=== PATIENT | male | born 1990 | race Two or more races ===

== ENCOUNTER 2023-06-19 17:30 | Emergency (ER) | payer MEDICAID ==
[~2023-06-19] VITALS: Ht 172.7 cm; Wt 70.2 kg
[2023-06-19 21:24] VITALS: BP 110/64; PULSE 70; RESP 15; TEMP 97.5; O2SAT 97
[2023-06-19] MEDS ORDERED: AMOX875T4 PO (21:41)
[2023-06-19] MEDS ORDERED: IBUP-1456 PO (21:41)
[2023-06-19] MEDS ORDERED: ZOFR4T PO (21:41)
[2023-06-19] MEDS: KETOROLAC TROMETH 60MG/2ML VIAL IM ONE (21:46)
[2023-06-19] MEDS: ONDANSETRON ODT 4 MG TAB PO ONE (21:46)
[2023-06-19] MEDS: cefTRIAXone SOD 1,000 MG VL IM ONE (21:46)
== END 2023-06-19 21:41 | disposition home or self-care (01) ==
LOC: ER 17:30
DX: G44.209 Tension-type headache, unspecified, not intractable (principal); H66.92 Otitis media, unspecified, left ear
CPT/HCPCS: 70450; 96372; 99285; J0696; J1885; Q0162

== ENCOUNTER 2023-06-23 22:23 | Emergency (ER) | payer MEDICAID ==
[~2023-06-23] VITALS: Ht 172.7 cm; Wt 70.3 kg
[~2023-06-23 22:23] MED LIST: AMOX875T4 PO; IBUP-1456 PO; ZOFR4T PO
[2023-06-23 23:30] LABS: Basophils # (auto) 0 10 ^3/uL (0-0.2); Basophils % (auto) 0.3 % (0.0-2.0); Eosinophils # (auto) 0.1 10 ^3/uL (0-0.8); Eosinophils % (auto) 0.7 % (0.0-7.0); Hematocrit 39.9 % (41.0-53.0); Hemoglobin 13.8 g/dL (13.5-17.5); Lymphocytes # (auto) 1.6 10 ^3/uL (0.4-5.4); Lymphocytes % (auto) 22.3 % (10.0-50.0); Mean Corpuscular Hemoglobin 31.1 pg (28.0-32.0); Mean Corpuscular Hgb Conc. 34.5 g/dL (32.0-36.0); Mean Corpuscular Volume 90.3 fL (80.0-100.0); Monocytes # (auto) 0.6 10 ^3/uL (0-1.3); Monocytes % (auto) 8.3 % (0.0-12.0); Neutrophils # (auto) 4.8 10 ^3/uL (1.6-8.6); Neutrophils % (auto) 68.4 % (37.0-80.0); Red Blood Cells 4.42 10^6/uL (4.5-5.90); Red Cell Distribution Width 12.2 % (11.8-14.3); White Blood Cell 7.1 10^3/uL (4.4-10.8)
[2023-06-23 23:31] VITALS: BP 110/63; PULSE 70; RESP 18; TEMP 98.4; O2SAT 96
[2023-06-23 23:35] LABS: Anion Gap 7 (5-15); Carbon Dioxide 28 mmol/L (20-30); Chloride 106 mmol/L (98-107); Potassium 3.6 mmol/L (3.5-5.1); Sodium 141 mmol/L (136-145)
[2023-06-23 23:36] LABS: Calcium 10.1 mg/dL (8.7-10.4)
[2023-06-23 23:41] LABS: BUN/Creatinine Ratio 13.2 (10.0-20.0); Blood Urea Nitrogen 14 mg/dL (9-23); Glucose 97 mg/dL (74-106); Lipase 41 U/L (12-53)
[2023-06-24 00:25] LABS: Urine Bacteria None Seen /hpf (None Seen)
[2023-06-24] MEDS: KETOROLAC TROMETH 60MG/2ML VIAL IM ONE (00:26)
[2023-06-24 00:43] LABS: Urine Blood Negative /uL (Negative); Urine Clarity Clear (Clear); Urine Color Light-Yellow (Yellow); Urine Mucus FEW (None Seen); Urine Protein, UAD Negative (Negative); Urine Specific Gravity 1.009 (1.001-1.035); Urine Urobilinogen Normal (Negative); Urine WBC 1 /hpf (0 - 3)
[2023-06-24] MEDS ORDERED: ZOFR4T PO (01:32)
[2023-06-24] MEDS ORDERED: IBUP-1455 PO (01:32)
== END 2023-06-24 03:00 | disposition home or self-care (01) ==
LOC: ER 22:23
DX: R10.9 Unspecified abdominal pain (principal); Z79.1 Long term (current) use of non-steroidal anti-inflammatories (NSAID); Z79.2 Long term (current) use of antibiotics; Z79.899 Other long term (current) drug therapy
CPT/HCPCS: 36415; 74176; 80048; 81001; 83690; 85025; 96372; 99285; J1885